=== PATIENT | female | born 1950 | race Caucasian/White ===

== ENCOUNTER 2018-12-31 14:43 | Emergency (ER) | payer OTHER ==
[~2018-12-31] VITALS: Ht 152.4 cm; Wt 73.7 kg
[~2018-12-31 14:43] MED LIST: ACET500T98 PO; ASPI1TAB2; BACTDS PO; CAPT25TA47; CEPH-443 PO; FER325 PO; IBUP-1542 PO; LISI10TA2 PO; LORA-407 PO; OMEP20CA16 PO; QUIN5TAB PO; TRAM50TA PO
[2018-12-31 14:52] VITALS: Ht 152.4 cm; Wt 73.7 kg
[2018-12-31] MEDS ORDERED: KETOROLAC 15 MG INJ IM STA (15:55)
[2018-12-31 17:50] VITALS: BP 135/68; PULSE 89; RESP 18
== END 2018-12-31 17:50 | disposition home or self-care (01) ==
LOC: E/R 14:43
DX: M79.18 Myalgia, other site (principal); I10 Essential (primary) hypertension; Z79.82 Long term (current) use of aspirin
CPT/HCPCS: 36415; 71045; 73030; 80048; 82550; 84484; 85025; 93005; 96372; 99285; J1885